=== PATIENT | female | born 1965 | race Caucasian/White ===

== ENCOUNTER 2016-04-01 04:05 | Emergency (ER) | payer MEDICAID ==
[~2016-04-01] VITALS: Ht 160 cm; Wt 54.9 kg
[~2016-04-01 04:05] MED LIST: NKM
[2016-04-01] MEDS ORDERED: TdaP Vaccine 0.5ml Syr IM ONE (04:30)
--- NOTE | 2016-04-01 04:45 | Emergency Room Report ---
History of Present Illness General Chief Complaint: Behavioral Complaint Source: Patient, EMS Present Illness HPI This is a 50-year-old female who is an alcoholic. She presents with chief complaint of feeling suicidal. She's been feeling suicidal and said because of problem with her family. She's been drinking tonight. Her roommate called 911 because she is expressing suicidal thoughts and was cutting her wrists. Also complaining of left lower quadrant abdominal pain. His been ongoing for last 3 days. [place] nauseous but no vomiting. No diarrhea. Denies any fever or chills. No other complaint. Allergies: Coded Allergies: No Known Allergies (Unverified , 12/21/15) Patient History Past Medical History: see triage record, old chart reviewed Past Surgical History: other Pertinent Family History: none Social History: Reports: alcohol use, Denies: smoking Last Menstrual Period: 2 years ago Now: No Immunizations: other Reviewed Nursing Documentation: PMH: Agreed, PSxH: Agreed Nursing Documentation-PMH History Of Psychiatric Problem: Yes - DEPRESSION Review of Systems Eye: Denies: blurred vision, eye pain ENT: Denies: ear pain, nose congestion, throat swelling Respiratory: Denies: cough, shortness of breath Cardiovascular: Denies: chest pain, palpitations Gastrointestinal: Reports: abdominal pain, Denies: diarrhea, nausea, vomiting Musculoskeletal: Denies: back pain, joint pain Skin: Denies: rash Neurological: Denies: headache, numbness Endocrine: Denies: increased thirst, increased urine Hematologic/Lymphatic: Denies: easy bruising All Other Systems: negative except mentioned in HPI Physical Exam Vital Signs Date Time Temp Pulse Resp B/P Pulse Ox O2 Delivery O2 Flow Rate FiO2 04/01/16 04:16 98.1 108 16 125/82 98 Room Air vitals unremarkable Sp02 EP Interpretation: reviewed, normal General Appearance: well appearing, no apparent distress, alert Head: normocephalic, atraumatic Eyes: bilateral eye EOMI, bilateral eye PERRL ENT: hearing grossly normal, normal pharynx Neck: full range of motion, supple, no meningismus Respiratory: chest non-tender, lungs clear, normal breath sounds Cardiovascular #1: regular rate, rhythm, no murmur Gastrointestinal: normal bowel sounds, no mass, no organomegaly, no bruit, non- distended, tenderness - Mild left lower quadrant Musculoskeletal: back normal, gait/station normal, normal range of motion, other - Multiple superficial horizontal laceration to volar aspects of both wrists Psychiatric: mood/affect normal Skin: warm/dry Medical Decision Making Diagnostic Impression: Primary Impression: Alcohol intoxication Qualified Codes: F10.120 - Alcohol abuse with intoxication, uncomplicated Additional Impressions: Abdominal pain Qualified Codes: R10.84 - Generalized abdominal pain Laceration of wrist without complication Qualified Codes: S61.519A - Laceration without foreign body of unspecified wrist, initial encounter Suicidal ideations Gallstone Qualified Codes: K80.20 - Calculus of gallbladder without cholecystitis without obstruction ER Course Patient presents with suicidal thoughts and intent. Most likely secondary to depression and alcohol intoxication. Abdominal pain is nonspecific. Probably secondary to alcohol. CT scan unremarkable. No evidence of infection. No surgical abdomen. When she is clinically sober, we'll get psychiatric evaluation. Lacerations are superficial and does not need repair. I will sign this patient out to Dr. Andrews for final disposition. Lab Results Impression labs unremarkable except for elevated alcohol. CT/MRI/US Diagnostic Results CT/MRI/US Diagnostic Results : Imaging Test Ordered: ct abd and pelvis Impression Read by radiologist. Gallstones. NAD. Last Vital Signs Date Time Temp Pulse Resp B/P Pulse Ox O2 Delivery O2 Flow Rate FiO2 04/01/16 04:16 98.1 108 16 125/82 98 Room Air Status: improved Disposition: XFER TO PSYCH HOSP/UNIT Condition: Stable BERENICE PENA M.D. Apr 01, 2016 04:45
[2016-04-01 04:49] LABS: BASOPHILS % (AUTO) 1.2 % (0.0-2.0); EOSINOPHILS % (AUTO) 3.8 % (0.0-3.0); LYMPHOCYTES % (AUTO) 39.6 % (20.0-45.0); MEAN CORPUSCULAR HEMOGLOBIN 31.7 PG (27.0-31.0); MEAN CORPUSCULAR HGB CONC 33.4 G/DL (32.0-36.0); MEAN CORPUSCULAR VOLUME 95 FL (80-99); MONOCYTES % (AUTO) 6.6 % (1.0-10.0); NEUTROPHILS % (AUTO) 48.7 % (45.0-75.0); PLATELET COUNT 229 K/UL (150-450); RED BLOOD COUNT 4.51 M/UL (4.20-5.40); RED CELL DISTRIBUTION WIDTH 11.7 % (11.6-14.8); WHITE BLOOD COUNT 5.4 K/UL (4.8-10.8)
[2016-04-01 04:51] LABS: APPEARANCE,URINE CLEAR; KETONES,URINE NEGATIVE (NEGATIVE); LEUKOCYTE ESTERASE ,URINE NEGATIVE (NEGATIVE); NITRITE,URINE NEGATIVE (NEGATIVE); PH,URINE 5 (4.5-8.0); PROTEIN,URINE NEGATIVE (NEGATIVE); UROBILINOGEN,URINE NORMAL MG/DL (0.0-1.0)
[2016-04-01 04:55] VITALS: BP 116/63
[2016-04-01 04:56] LABS: RBC,URINE 0-2 /HPF (0 - 2); WBC,URINE 0 /HPF (0 - 2)
[2016-04-01 04:57] LABS: SQUAMOUS EPITHELIAL CELL,UR FEW /LPF (NONE/OCC)
[2016-04-01 05:02] LABS: ACETAMINOPHEN < 10 ug/mL (10-30); ALANINE AMINOTRANSFERASE 13 U/L (3-33); ALBUMIN/GLOBULIN RATIO 1.4 (1.0-2.7); ALCOHOL 258 mg/dL; ANION GAP 14 (5-15); ASPARTATE AMINO TRANSFERASE 17 U/L (5-40); CALCIUM 8.9 mg/dL (8.6-10.2); CARBON DIOXIDE 26 mEQ/L (20-30); CHLORIDE 107 mEQ/L (98-107); CREATININE 0.6 mg/dL (0.5-0.9); GLOMERULAR FILTRATION RATE > 60 mL/min (>60); HEMOLYSIS 2; POTASSIUM 4.1 mEQ/L (3.4-4.9); SODIUM 147 mEQ/L (135-145); TOTAL PROTEIN 7.6 g/dL (6.6-8.7)
[2016-04-01 06:30] VITALS: BP 109/70
[2016-04-01 08:16] VITALS: BP 110/70
--- NOTE | 2016-04-01 09:11 | Diagnostic Imaging Report ---
Indication: Abdominal pain Technique: Continuous helical transaxial imaging of the abdomen and pelvis was obtained from the lung bases to the pubic symphysis. No intravenous contrast was administered. Coronal 2-D reformats were also obtained. Total Dose length Product (DLP): [address] Dose Index Volume (CTDIvol): 13 mGy Comparison: none Findings: The appendix is normal. There is no nephrolithiasis. Gallstone noted. Lung bases are clear. There is suggestion of a cyst in the central part of the liver measuring 1.6 cm. This should be confirmed on additional imaging. The current study as obtained is limited as no IV or oral contrast was given. There is no free fluid or free air. No evidence of bowel obstruction. Hiatal hernia is present. There is a compression fracture deformity of the L4 vertebra will be old. Impression: No acute findings identified. Gallstone Normal appendix Suggestion of a hepatic cyst. [facility] has communicated the preliminary results to the Emergency Department. Their findings are largely concordant with this report. The CT scanner at [facility] is accredited by the [employer] [place] [employer] and the scans are performed using protocols designed to limit radiation exposure to as low as reasonably achievable to attain images of sufficient resolution adequate for diagnostic evaluation.
[2016-04-01 10:17] VITALS: BP 105/67
[2016-04-01 12:15] VITALS: BP 103/63
[2016-04-01 12:16] VITALS: BP 103/63
== END 2016-04-01 12:17 ==
LOC: EDBD 04:05 → EMR 04:30
DX: F10.129 Alcohol abuse with intoxication, unspecified (principal); R10.32 Left lower quadrant pain; S61.512A Laceration without foreign body of left wrist, initial encounter; X78.0XXA Intentional self-harm by sharp glass, initial encounter; Y92.009 Unspecified place in unspecified non-institutional (private) residence as the place of occurrence of the external cause; Z23 Encounter for immunization
CPT/HCPCS: 36415; 74176; 80053; 80300; 80329; 81003; 81025; 85025; 90471; 90715; 96360